=== PATIENT | male | born 1985 | race Two or more races ===

== ENCOUNTER 2019-07-18 02:24 | Inpatient (IN) | payer MEDICAID ==
[~2019-07-18] VITALS: Ht 162.6 cm; Wt 75.7 kg
--- NOTE | 2019-07-18 02:45 | NUR ---
BIB FAMILY TO THE ER W/ C/O H/A 05/06. PT REPORTED HE WOKE UP W/ A SEVER HEADACHE AND R SIDED WEAKNESS AND SLURRED SPEECH. HOWEVER CURRENTLY HE IS SPEECH IS BACK TO NORMAL W/ NO WEAKNESS ON ANY PART OF HIS BODY. -N/V. VSS. PLACED OFELIA MONITOR,
[2019-07-18 03:17] LABS: BASOPHILS % (AUTO) 0.5 % (0.0-2.0); EOSINOPHILS % (AUTO) 1.4 % (0.0-6.0); HEMATOCRIT 41 % (39-51); HEMOGLOBIN 14.4 g/dL (13.5-17.5); LYMPHOCYTES # (AUTO) 1.3 /CMM (0.8-4.8); LYMPHOCYTES % (AUTO) 18.8 % (20.0-44.0); MEAN CORPUSCULAR HGB CONC 35 g/dl (31.0-36.0); MEAN CORPUSCULAR VOLUME 88 fL (80-96); MONOCYTES # (AUTO) 0.8 /CMM (0.1-1.30); MONOCYTES % (AUTO) 11.4 % (2.0-12.0); NEUTROPHILS # (AUTO) 4.7 /CMM (1.8-8.9); NEUTROPHILS % (AUTO) 67.9 % (43.0-81.0); PLATELET COUNT (AUTO) 284 /CMM (150-450); RED BLOOD CELL COUNT(AUTO) 4.67 MIL/uL (4.5-6.0); WHITE BLOOD COUNT (AUTO) 6.9 K/uL (4.3-11.0)
[2019-07-18 03:28] LABS: CALCIUM, SERUM 9.1 mg/dL (8.5-10.1); CARBON DIOXIDE 24 mmol/L (21-32); CHLORIDE 103 mmol/L (98-107); GLUCOSE 101 mg/dL (74-106); POTASSIUM 3.6 mmol/L (3.5-5.1); SODIUM SERUM 138 mmol/L (136-145); UREA NITROGEN, BLOOD 12 mg/dL (7-18)
[2019-07-18 03:33] LABS: CHOLESTEROL 190 mg/dL (<200); HDL CHOLESTEROL 34 mg/dL (40-60); LDL 127 mg/dL (0-99); TRIGLYCERIDES 233 mg/dL (30-150)
[2019-07-18 03:34] LABS: ALANINE AMINOTRANSFERASE 37 U/L (12-78); ALBUMIN 3.8 g/dL (3.4-5.0); ALKALINE PHOSPHATASE 73 U/L (46-116); ASPARTATE AMINOTRANSFERASE 22 U/L (15-37); BILIRUBIN,DIRECT 0.1 mg/dL (0.0-0.2); BILIRUBIN,TOTAL 0.3 mg/dL (0.2-1.0); TOTAL PROTEIN, SERUM 7.6 g/dL (6.4-8.2)
--- NOTE | 2019-07-18 03:50 | NUR ---
US TECH AT THE BED SIDE
--- NOTE | 2019-07-18 04:08 | NUR ---
CALLED [facility] FOR PANEL ADMISSION. WAITING FOR MD CALL BACK
--- NOTE | 2019-07-18 04:49 | NUR ---
REPORT GIVEN TO CLARE GRANADOS [facility]
--- NOTE | 2019-07-18 05:13 | NUR ---
PT WAS TRANSFERRED TO 107 UNDER ACLS IN STABLE CONDITION.
--- NOTE | 2019-07-18 05:15 | NUR ---
WOOLING MACHINE OPERATOR NOTES RECEIVED PT FROM ER, ON ROOM AIR NO RESPIRATORY DISTRESS NOTED. PT A/OX 4, AMBULATORY. IV ACCESS ON LAC G18 PATENT AND INTACT. PHYSICAL ASSESSMENT DONE, NO APPARENT WEAKNESS ON BOTH UPPER AND LOWER SIDE OF THE BODY, NO SLURRED SPEECH NOTED. WILL MONITOR PT CLOSELY.
[2019-07-18] MEDS ORDERED: CT SWABBABLE VALVE TRANS SET 1 EA INFUS.SET MC ONE (05:28)
[2019-07-18] MEDS ORDERED: IOHEXOL-350 100 ML VIAL IV ONE (05:28)
[2019-07-18] MEDS ORDERED: IV NS 0.9% 250 ML IV ONE (05:28)
[2019-07-18 05:50] LABS: APPEARANCE,URINE Clear (CLEAR); BILIRUBIN,URINE Negative (NEGATIVE); BLOOD, URINE Trace-intact Ery/uL (NEGATIVE); COLOR,URINE Yellow (YELLOW); KETONES,URINE Negative (NEGATIVE); LEUKOCYTE ESTERASE ,URINE Negative (NEGATIVE); NITRITE, URINE Negative (NEGATIVE); PH,URINE 6.5 (5.0-8.0); PROTEIN,URINE Negative (NEGATIVE); UGLUCOSE Negative (NEGATIVE); UROBILINOGEN,URINE 0.2 EU/dL (0.2)
[2019-07-18] MEDS ORDERED: BLOOD SUGAR DIAGNOSTIC 1 EACH STRIP IN SCH (06:00)
[2019-07-18 06:06] LABS: THYROID STIMULATING HORMONE 4.32 uIU/mL (0.358-3.74)
--- NOTE | 2019-07-18 06:27 | NUR ---
SALES FLOOR ASSOCIATE NOTES RADIOLOGIST CALLED FOR CTA BRAIN RESULTS.
--- NOTE | 2019-07-18 06:43 | NUR ---
BUGGY MAN NOTES NO ACUTE CHANGES NOTED DURING THE SHIFT. PROVIDED COMFORT AND SAFETY. WILL ENDORSE TO THE AM NURSE FOR CONTINUITY OF CARE.
[2019-07-18 06:48] LABS: BACTERIA,URINE None seen /HPF (None Seen); RBC,URINE 0-2 /HPF (0-2); SQUAMOUS EPITHELIAL CELL,UR None Seen /HPF (None Seen); WBC,URINE NONE SEEN /HPF (0-3)
--- NOTE | 2019-07-18 07:16 | NUR ---
TYPING POOL SUPERVISOR OPENING NOTE RECEIVED REPORT FROM [facility] SHIFT NURSE. PT AWAKE IN BED, ALERT AND ORIENTED X 4, ON VISITOR SERVICE ASSISTANT SINUS RHYTHM, ON ROOM AIR SATURATING WELL, RESPIRATIONS EASY AND UNLABORED, NO SIGNS OF RESPIRATORY DISTRESS NOTED. REPORTS HEADACHE RATED A 6/10. DISCUSSED PLAN OF CARE WITH PT. BED IN LOW POSITION, LOCKED, CALL LIGHT WITHIN REACH.
[2019-07-18] MEDS: BLOOD SUGAR DIAGNOSTIC 1 EACH STRIP IN SCH ×4 (07:41→22:00)
[2019-07-18 08:00] VITALS: BP 127/89
[2019-07-18] MEDS: ASPIRIN EC 325 MG TABLET.DR PO SCH (08:40)
--- NOTE | 2019-07-18 11:00 | NUR ---
Social service consult requested by VENU Alaniz for TIA. Pt. is a 34 year old male who was admitted to [facility] for possible TIA. SW met with pt. bedside. Pt. is alert and oriented x 4. Pt. appeared to be in good spirits. Pt's mother Jovita was bedside. Pt. lives with his family at [address] [place] [address] apt in [facility]. Pt's emergency contact is his mother Jovita . Pt. informed SW he had mild headaches but woke up in the AM feeling that he couldn't use his right hand, he was unable to make a fist or hold things in his hand and when he called his mother to tell her the symptom he found he could not speak. However, his symptoms did get better on the way to the hospital. Pt. denies any drug use. Pt. drinks alcohol socially. Pt. smokes 1 to 2 cigarettes per day. Pt. denies any depression or anxiety and appears emotionally stable. Advance Directives were discussed with the pt. No other social service needs are requested at this time. SW is available, if needed.
[2019-07-18] MEDS: METOPROLOL TARTRATE 50 MG TABLET PO SCH ×2 (11:39→21:34)
[2019-07-18 12:00] VITALS: BP 125/70
[2019-07-18] MEDS ORDERED: methylPREDNISolone (4MG) 4 MG TABLET (DAY #1, PC LUNCH) PO ONE (12:30)
[2019-07-18 16:00] VITALS: BP 139/82
[2019-07-18] MEDS ORDERED: methylPREDNISolone DOSPAK(4MG) 1 PACK TAB.DS.PK PO ONE (16:30)
[2019-07-18] MEDS ORDERED: methylPREDNISolone (4MG) 4 MG TABLET (DAY #1 ) PO ONE (17:00)
[2019-07-18] MEDS ORDERED: methylPREDNISolone (4MG) 4 MG TABLET (DAY #1 PC DINNER) PO ONE (17:30)
--- NOTE | 2019-07-18 19:09 | NUR ---
INTERPERSONAL COMMUNICATIONS PROFESSOR CLOSING NOTE PT AWAKE IN BED, ALERT ORIENTED X 4, FAMILY BY BEDSIDE. DENIES ANY HEADACHE AT THIS MOMENT. PT ON ROOM AIR, TOLERATING WELL, RESPIRATIONS EASY UNLABORED, NO SIGNS OF RESPIRATORY DISTRESS NOTED. BED IN LOW POSITION, LOCKED, CALL LIGHT WITHIN REACH. PROVIDED SAFETY AND COMFORT TO PT THROUGHOUT SHIFT, WILL ENDORSE TO NOC NURSE.
--- NOTE | 2019-07-18 19:40 | NUR ---
PROBATE CLERK OPENING NOTE RECEIVED REPORT FROM AM NURSE. AWAKE IN BED, ALERT AND ORIENTED X 4, ON CAGE/VAULT SUPERVISOR SINUS RHYTHM, ON ROOM AIR SATURATING WELL, RESPIRATIONS EASY AND UNLABORED, NO SIGNS OF RESPIRATORY DISTRESS NOTED.SAFETY PRECAUTIONS IN PLACE, FAMILY AT BEDSIDE. PT SEEMS VERY CONTENT AND COMFORTABLE.
[2019-07-18 20:00] VITALS: BP 141/90
[2019-07-18] MEDS ORDERED: SIMVASTATIN 10 MG TABLET PO SCH (22:00)
[2019-07-18] MEDS ORDERED: methylPREDNISolone (4MG) 4 MG TABLET (DAY1,HS) PO ONE (22:00)
[2019-07-19] VITALS: BP 113/72
[2019-07-19 04:00] VITALS: BP 119/72
--- NOTE | 2019-07-19 06:49 | NUR ---
HAND PROFILER CLOSING NOTES: PT ASLEEP IN BED COMFORTABLY. NO CHANGES OVERNIGHT. PT IN NO ACUTE DISTRESS. RESPIRATIONS ARE EVEN UNLABORED. ON ROOM AIR. STATED NO PAIN DURING MY SHIFT. , TOLERATING WELL, BED IN LOW POSITION, LOCKED, CALL LIGHT WITHIN REACH. PROVIDED SAFETY AND COMFORT TO PT THROUGHOUT SHIFT, WILL ENDORSE TO AM NURSE.
--- NOTE | 2019-07-19 07:20 | NUR ---
CABBAGE SALTER OPENING NOTE RECEIVED REPORT FROM PM NURSE. PATIENT IN BED, ALERT AND ORIENTED X 4. ON ELECTRONIC INSTALLER SINUS RHYTHM HR 89.ON ROOM AIR . RESPIRATIONS EASY AND UNLABORED. NO SIGNS OF RESPIRATORY DISTRESS NOTED.DENIES ANY PAIN OR DISCOMFORT.SAFETY PRECAUTIONS IN PLACE.CALL LIGHT IN REACH.WILL CONTINUE TO MONITOR.
[2019-07-19] MEDS ORDERED: methylPREDNISolone (4MG) 4 MG TABLET (DAY#2 ACB) PO ONE (07:30)
[2019-07-19] MEDS: BLOOD SUGAR DIAGNOSTIC 1 EACH STRIP IN SCH ×2 (07:48→12:26)
[2019-07-19 08:00] VITALS: BP 111/81
[2019-07-19 08:01] LABS: BASOPHILS % (AUTO) 0.2 % (0.0-2.0); HEMATOCRIT 45 % (39-51); HEMOGLOBIN 15.6 g/dL (13.5-17.5); LYMPHOCYTES # (AUTO) 1.4 /CMM (0.8-4.8); LYMPHOCYTES % (AUTO) 11.7 % (20.0-44.0); MEAN CORPUSCULAR HGB CONC 35 g/dl (31.0-36.0); MEAN CORPUSCULAR VOLUME 89 fL (80-96); MONOCYTES # (AUTO) 0.6 /CMM (0.1-1.30); NEUTROPHILS # (AUTO) 10.2 /CMM (1.8-8.9); NEUTROPHILS % (AUTO) 83.1 % (43.0-81.0); PLATELET COUNT (AUTO) 328 /CMM (150-450); RED BLOOD CELL COUNT(AUTO) 5.07 MIL/uL (4.5-6.0); WHITE BLOOD COUNT (AUTO) 12.3 K/uL (4.3-11.0)
[2019-07-19] MEDS: ASPIRIN EC 325 MG TABLET.DR PO SCH (08:33)
[2019-07-19 08:34] VITALS: BP 111/81
[2019-07-19] MEDS: METOPROLOL TARTRATE 50 MG TABLET PO SCH (08:34)
[2019-07-19 08:46] LABS: CALCIUM, SERUM 9.3 mg/dL (8.5-10.1); CREATININE 1.2 mg/dL (0.6-1.3); MAGNESIUM 2.3 mg/dL (1.8-2.4); PHOSPHORUS 5.6 mg/dL (2.5-4.9); POTASSIUM 4.3 mmol/L (3.5-5.1)
--- NOTE | 2019-07-19 11:00 | NUR ---
RN NOTE SEEN BY ,UPDATED ABOUT PATIENT CONDITION WITH LABS.ELEVATED WBC ON PREDNISONE.OK TO D/C HOME IF CLEARED BY NEUROLOGIST.PLAN OF CARE AND DISCHARGE INSTRUCTIONS GIVEN BY .PATIENT VERBALIZED UNDERSTANDING
[2019-07-19] MEDS ORDERED: METO50TA16 PO (11:12)
[2019-07-19] MEDS ORDERED: SIMV10TA6 PO (11:12)
[2019-07-19] MEDS ORDERED: METH4TAB17 PO (11:12)
[2019-07-19] MEDS ORDERED: methylPREDNISolone (4MG) 4 MG TABLET (DAY#2,PC LUNCH) PO ONE (12:30)
--- NOTE | 2019-07-19 13:20 | NUR ---
MS RN NOTE GOT REPORT FROM TROY AT BEDSIDE. PT A/O/X4. ON ROOM AIR. NOT RESPIRATORY DISTRESS OR SOB NOTED AT THIS TIME. ALREADY HAVE D/C ORDER AND WILL BE D/C IF CLEARED BY NOSOLOGIST. SAFETY PRECAUTION MADE. BED AT THE LOWEST AND LOCKED POSITION. SIDE RAILS UP X2. CALL LIGHT WITHIN THE REACH. WILL CONTINUE TO MONITOR AND FOLLOW UP WITH THE NOSOLOGIST.
--- NOTE | 2019-07-19 13:25 | NUR ---
RN NOTE REPORT GIVEN TO ROSANNE ROUSSEAU FOR [facility]ADEO.PATENT IN STABLE CONDITION..WAITING FOR NEUROLOGIST FOR DISCHARGE.
--- NOTE | 2019-07-19 14:17 | NUR ---
RN MS NOTE DR. ADAN AT BEDSIDE AND TALKED TO THE PT. ACCORDING TO HIM PATIENT CAN BE DISCHARGED.
--- NOTE | 2019-07-19 15:20 | NUR ---
MS RN NOTE PT DISCHARGED TO HOME. VITAL SIGN WNL. ALL PRESCRIPTION AND EDUCATION MATERIAL GIVEN TO HIM AND HE WAS TOLD TO FOLLOW UP WITH PCP WITHIN 1 WEEK. STABLE AND WALKED OUT WITH HIS BROTHER. SCOURED TO THE LOBBY.
[2019-07-19] MEDS ORDERED: methylPREDNISolone (4MG) 4 MG TABLET (DAY#2, PC DINNER) PO ONE (17:30)
[2019-07-19] MEDS ORDERED: methylPREDNISolone (4MG) 4 MG TABLET (DAY#2, HS) PO ONE (21:00)
[2019-07-19] MEDS ORDERED: SIMVASTATIN 10 MG TABLET PO SCH (22:00)
[2019-07-20] MEDS ORDERED: methylPREDNISolone (4MG) 4 MG TABLET (DAY#3,ACB) PO ONE (07:30)
[2019-07-20] MEDS ORDERED: methylPREDNISolone (4MG) 4 MG TABLET (DAY#3,PC LUNCH) PO ONE (12:30)
[2019-07-20] MEDS ORDERED: methylPREDNISolone (4MG) 4 MG TABLET (DAY#3,PC DINNER) PO ONE (17:30)
[2019-07-20] MEDS ORDERED: methylPREDNISolone (4MG) 4 MG TABLET (DAY#3, HS) PO ONE (22:00)
[2019-07-21] MEDS ORDERED: methylPREDNISolone (4MG) 4 MG TABLET (DAY #4, ACB) PO ONE (07:30)
[2019-07-21] MEDS ORDERED: methylPREDNISolone (4MG) 4 MG TABLET (DAY #4, PC LUNCH) PO ONE (12:30)
[2019-07-21] MEDS ORDERED: methylPREDNISolone (4MG) 4 MG TABLET (DAY#4 HS) PO ONE (22:00)
[2019-07-22] MEDS ORDERED: methylPREDNISolone (4MG) 4 MG TABLET (DAY#5, ACB) PO ONE (07:30)
[2019-07-22] MEDS ORDERED: methylPREDNISolone (4MG) 4 MG TABLET (DAY#5,HS) PO ONE (22:00)
[2019-07-23] MEDS ORDERED: methylPREDNISolone (4MG) 4 MG TABLET (DAY#6,ACB) PO ONE (07:30)
== END 2019-07-19 15:10 | disposition home or self-care (01) | DRG 346 ==
LOC: ER 02:30 → TELE1 04:36 → MEDSG1 07-19 08:30
PROVIDERS: ADMIT Student in an Organized Health Care Education/Training Program; ATTEND Student in an Organized Health Care Education/Training Program
DX: I77.6 Arteritis, unspecified (principal); E78.1 Pure hyperglyceridemia; E78.5 Hyperlipidemia, unspecified; E86.0 Dehydration; I10 Essential (primary) hypertension; F17.210 Nicotine dependence, cigarettes, uncomplicated; R00.0 Tachycardia, unspecified; R70.0 Elevated erythrocyte sedimentation rate; R94.6 Abnormal results of thyroid function studies
CPT/HCPCS: 36415; 70450-TC; 70496-TC; 70498-TC; 71045-TC; 80048-TC; 80061-TC; 80076-TC; 80305; 81000-TC; 82962-TC; 83735-TC; 83880; 84100-TC; 84443-TC; 84484-TC; 85025-TC; 85652-TC; 85730-TC; 86140-TC; 87081-TC; 92526; 92611-TC; 93307-TC; 93880-TC; 97116-TC; 97530-TC; G0378; J7050; J7509; Q9967

== ENCOUNTER 2019-07-22 19:10 | Emergency (ER) | payer MEDICAID ==
[~2019-07-22] VITALS: Ht 170.2 cm; Wt 77.1 kg
[~2019-07-22 19:10] MED LIST: METH4TAB17 PO; METO50TA16 PO; SIMV10TA6 PO
--- NOTE | 2019-07-22 19:39 | NUR ---
BIBS FOR C/O R RIB PAIN AND EPISODE OF DIZZINESS REGISTERED NURSE PRACTITIONER. PT REPORTED DRY COUGH FOR THE PAST FEW DAYS. PT WAS HOSPITALIZED AT [facility] W/ DX OF TIA LAST WK AND GOT DISCHARGED ON MON .
[2019-07-22 19:53] VITALS: BP 138/94
== END 2019-07-22 21:29 | disposition home or self-care (01) ==
LOC: ER 19:14
DX: R05 Cough (principal); R07.89 Other chest pain; Z88.1 Allergy status to other antibiotic agents; Z79.899 Other long term (current) drug therapy; Z86.73 Personal history of transient ischemic attack (TIA), and cerebral infarction without residual deficits
CPT/HCPCS: 71046